=== PATIENT | male | born 1950 | race Caucasian/White ===

== ENCOUNTER 2016-12-27 07:22 | Day surgery (SDC) | payer BC ==
[~2016-12-27] VITALS: Ht 180.3 cm; Wt 90.0 kg
[~2016-12-27 07:22] MED LIST: ASP81CT PO; LSNP20T PO; NF-MET200T PO; [UNRECOGNIZED DRUG - CODE] PO
[2016-12-27 08:01] VITALS: BP 157/106
[2016-12-27] MEDS ORDERED: LVT.025T PO (08:12)
[2016-12-27] MEDS ORDERED: DAPS100T3 PO (08:15)
[2016-12-27] MEDS ORDERED: SPRN25T PO (08:15)
[2016-12-27] MEDS ORDERED: SODIUM CHLORIDE FLUSH 3 ML SYR IV SCH (08:35)
[2016-12-27] MEDS ORDERED: ceFAZolin 2,000 MG in SODIUM CHLORIDE VIAL (PF) 20 ML IV SCH (08:35)
[2016-12-27] MEDS ORDERED: LACTATED RINGERS 1,000 ML IV SCH (08:35)
[2016-12-27] MEDS ORDERED: LIDOCAINE/EPINEPHRINE 1%-1:100,000 (XYLOCAINE) 20ML VIAL ONE (09:02)
[2016-12-27] MEDS ORDERED: REMIFENTANIL 1 MG (ULTIVA) VIAL IV ONE (09:05)
[2016-12-27] MEDS ORDERED: PROPOFOL 40 ML IV ONE (09:05)
[2016-12-27] MEDS ORDERED: MIDAZOLAM 2 MG/2 ML (VERSED) VIAL ONE (09:05)
[2016-12-27] MEDS ORDERED: ceFAZolin 1000 MG (ANCEF) VIAL ONE (09:30)
[2016-12-27 10:21] VITALS: BP 158/106
[2016-12-27 10:42] VITALS: BP 166/106
[2016-12-27] MEDS ORDERED: KETOROLAC 30 MG/ML (TORADOL) 1 ML VIAL IV PRN (10:55)
[2016-12-27] MEDS ORDERED: morphine INJ 4 MG/ML 1 ML SYRINGE IV PRN (10:55)
[2016-12-27] MEDS ORDERED: METOCLOPRAMIDE 10 MG/2 ML (REGLAN) VIAL IV PRN (10:55)
[2016-12-27] MEDS ORDERED: ONDANSETRON 2 MG/ML (Z0FRAN) 2 ML VIAL IV PRN (10:55)
--- NOTE | 2016-12-27 13:02 | OPERATIVE REPORT ---
DATE OF OPERATION: 12/27/2016 PRE-OPERATIVE DIAGNOSIS: Symptomatic umbilical hernia POST-OPERATIVE DIAGNOSIS: Symptomatic umbilical hernia OPERATIVE PROCEDURE: Umbilical hernia repair with mesh SURGEON: Nikos Bush MD BED BUG EXTERMINATOR: CAMILLE Macdonald ANESTHESIA: Monitored anesthesia care with local INDICATION: The patient is a 66-year-old referred by Dr. Kelley with a symptomatic umbilical hernia. He presents today for elective repair of this. DESCRIPTION OF PROCEDURE: The patient was informed of the risks and benefits and agreed to proceed. He was administered preoperative IV antibiotics and then taken to the operating room. He was placed supine on the standard operating table and administered IV sedation. When properly sedated his abdomen was prepped and draped in the standard sterile fashion. Then 1% lidocaine with epinephrine was injected in the skin above the umbilicus and a curvilinear incision was made with the #15 blade scalpel through the skin. Blunt dissection was used to expose the underlying hernia sac, and this was undermined with a Pean clamp to elevate the apex of the sac along with the skin of the umbilicus, which was attached. The skin was from hernia sac sharply with the #15 blade scalpel. The edges of the defect were then delineated and the sac was opened circumferentially at the level of the fascia with the Metzenbaum scissors. The contents of the sac appeared to be just omentum, and this was reduced back into the peritoneal cavity without difficulty. The defect measured 2 mm in diameter. Gentle blunt dissection was used to create space underneath the fascia for a Ventralex patch and a small patch was then placed within the defect. The edges of the facia were then closed incorporating the mesh into the closure, using interrupted 2-0 Prolene. Once the defect was repaired, the umbilical skin was sewn to the fascia with interrupted 3-0 Vicryl to recreate the appearance of the belly button. The subcutaneous tissue was reapproximated with the same suture in an interrupted fashion, and then the skin was then closed with subcuticular 4-0 Monocryl. A dressing was applied. The patient tolerated the procedure without complications.
== END 2016-12-27 10:47 | disposition home or self-care (01) ==
LOC: ASC 07:22
PROVIDERS: ATTEND Surgery
DX: K42.9 Umbilical hernia without obstruction or gangrene (principal); I10 Essential (primary) hypertension
CPT/HCPCS: 36415; 49585; 84132; C1781; J0690; J2250